=== PATIENT | female | born 1975 | race Two or more races ===

== ENCOUNTER 2025-05-21 12:18 | Emergency (ER) | payer OTHER ==
[~2025-05-21] VITALS: Ht 160 cm; Wt 61.0 kg
[2025-05-21] MEDS ORDERED: LIPITOR10 MG PO (14:03)
[2025-05-21] MEDS ORDERED: METFORMIN HCL500 M3 PO (14:03)
[2025-05-21] MEDS ORDERED: OZEMPIC0.25 MG/02 SUB-Q (14:03)
[2025-05-21 14:17] LABS: BASOPHILS 0.5 % (0.1-1.2); EOSINOPHILS 0.3 % (0.7-5.8); LYMPHOCYTES 12.7 % (19.3-51.7); MCH 29.1 PG (25.6-32.2); MCHC 34.8 g/dL (32.2-35.5); MCV 83.6 fL (79.4-94.8); MONOCYTES 7.4 % (4.7-12.5); NEUTROPHILS 78.8 % (34.0-71.1); RBC 4.99 M/uL (3.93-5.22)
[2025-05-21 14:35] LABS: CORONAVIRUS COVID-19 AG NEGATIVE (NEGATIVE)
[2025-05-21 14:38] LABS: ALT (SGPT) 37.0 U/L (14-59); AST (SGOT) 12.0 U/L (15-37); GLOMERULAR FILTRATION RATE,EST 110.0 mL/min (>60); PROTEIN, TOTAL 8.2 g/dL (6.4-8.2); UREA NITROGEN 9.0 mg/dL (7-18)
[2025-05-21] MEDS ORDERED: AMP/SULBACTAM SOD 3 GM in SODIUM CHLORIDE 0.9% 100 ML IV ONE (15:45)
[2025-05-21] MEDS ORDERED: DEXAMETHASONE SOD PHOS 10 MG/ML VIAL IV ONE (15:45)
[2025-05-21] MEDS ORDERED: AMOX TR-K CLV1 EAC1 PO (16:37)
[2025-05-21] MEDS ORDERED: AMOXICILLIN/CLAVULANATE K 875 MG HOME.PACK PO ONE (16:45)
[2025-05-21] MEDS ORDERED: AMOXICILLIN/CLAVULANATE K 875 MG TAB PO ONE (16:45)
[2025-05-21 16:55] VITALS: BP 144/89
[2025-05-23] MEDS ORDERED: VITAMIN D3125 MC1 PO (16:58)
[2025-05-23] MEDS ORDERED: B-121000 MC2 PO (16:59)
== END 2025-05-21 16:55 | disposition home or self-care (01) ==
LOC: ED 12:18
PROVIDERS: Emergency Medicine
DX: J03.80 Acute tonsillitis due to other specified organisms (principal); B96.89 Other specified bacterial agents as the cause of diseases classified elsewhere; Z79.84 Long term (current) use of oral hypoglycemic drugs; Z88.8 Allergy status to other drugs, medicaments and biological substances
CPT/HCPCS: 36415; 70491; 80053; 85025; 87651; 96365; 96375; 99283-25; J0295; J1100; Q9967